=== PATIENT | female | born 1980 | race Hispanic/Latino ===

== ENCOUNTER 2017-07-27 13:34 | Outpatient (CLI) | payer BC ==
--- NOTE | 2017-07-27 15:46 | Mammography Report ---
BILATERAL DIGITAL SCREENING MAMMOGRAM WITH CAD:07/27/17 CLINICAL: Baseline screening.This patient presented with an order for a right axillary ultrasound for something felt by her in the axilla. She has never had a mammogram. FINDINGS: There are bilateral scattered fibroglandular densities.An oval partially circumscribed left focal asymmetry requires additional imaging.No other mass, architectural distortion or suspicious calcifications. The right axilla is negative with a palpable marker high in the axilla. IMPRESSION: Negative right breast. Left asymmetry require additional imaging. BI-RADS CATEGORY: 0--Needs Additional Imaging RECOMMENDATION: Recall for a left breast ultrasound to evaluate a left asymmetry. This ACR BI-RADS MAMMOGRAPHIC CODES: 0 = Needs additional imaging evaluation; 1 = Negative; 2 = Benign; 3 = Probably benign; 4 = Suspicious; 5 = Malignant; 6 = Known biopsy-proven malignancy COMMENT: 1. Dense breast tissue, i.e., adenosis, fibrocystic changes, etc., may obscure an underlying neoplasm. 2. Approximately 10% of cancers are not detected with mammography. 3. A negative mammography report should not delay biopsy if a clinically suspicious mass is present.
--- NOTE | 2017-07-27 15:49 | Ultrasound Report ---
Ultrasound Right Axilla: 07/27/17 13:51:00 CLINICAL: Palpable lumps right axilla. Negative mammogram. FINDINGS: Ultrasound the right axilla demonstrated to oval relatively smooth hypoechoic skin lesions which correlate with the palpable finding. They're located high in the axilla. The larger measures 4 x 4 4 mm and the smaller measures 6 x 2 x 5 mm. IMPRESSION: Subcentimeter benign sebaceous cysts of the right axilla. Recommend clinical followup.
== END 2017-07-27 13:35 | disposition home or self-care (01) ==
LOC: US 13:34
PROVIDERS: ATTEND Family Medicine
DX: Z12.31 Encounter for screening mammogram for malignant neoplasm of breast (principal); L72.3 Sebaceous cyst; R22.31 Localized swelling, mass and lump, right upper limb
CPT/HCPCS: 77067

== ENCOUNTER 2017-08-12 11:16 | Outpatient (CLI) | payer BC ==
--- NOTE | 2017-08-15 13:19 | Ultrasound Report ---
Sonogram left breast: History: Left breast asymmetry. Findings: Addendum a position corresponding to the asymmetry of the left breast there is complex cyst identified measuring 0.6 x 0.8 x 0.5 cm. At the left axilla there is a single lymph node noted measuring 0.5 x 0.7 x 0.7 cm and appears benign. Impression: Complex cyst left breast. Recommend 6 month followup with mammogram and sonogram. BI-RADS CATEGORY: 3 = Probably benign ACR BI-RADS MAMMOGRAPHIC CODES: 0 = Needs additional imaging evaluation; 1 = Negative; 2 = Benign; 3 = Probably benign; 4 = Suspicious; 5 = Malignant; 6 = Known biopsy-proven malignancy COMMENT: 1. Dense breast tissue, i.e., adenosis, fibrocystic changes, etc., may obscure an underlying neoplasm. 2. Approximately 10% of cancers are not detected with mammography. 3. A negative mammography report should not delay biopsy if a clinically suspicious mass is present.
== END 2017-08-12 11:17 | disposition home or self-care (01) ==
LOC: US 11:16
PROVIDERS: ATTEND Family Medicine
DX: N60.02 Solitary cyst of left breast (principal); R92.8 Other abnormal and inconclusive findings on diagnostic imaging of breast

== ENCOUNTER 2018-01-08 06:10 | Inpatient (IN) | payer BC ==
[2018-01-04 11:55] LABS: Basophils % (Auto) 0.7 % (0.0-1.8); Eosinophils # (Auto) 0.8 K/mm3 (0.0-0.4); Eosinophils % (Auto) 12.5 % (0.0-4.3); Hematocrit 40.8 % (30.3-42.9); Hemoglobin 14.1 gm/dl (10.1-14.3); Lymphocytes # (Auto) 1.8 K/mm3 (1.2-5.4); Lymphocytes % (Auto) 26.8 % (13.4-35.0); Mean Corpuscular HGB Conc 35 % (30-34); Mean Corpuscular Hemoglobin 32 pg (28-32); Mean Corpuscular Volume 93 fl (79-97); Monocytes # (Auto) 0.3 K/mm3 (0.0-0.8); Monocytes % (Auto) 5.1 % (0.0-7.3); Platelet Count 289 K/mm3 (140-440); Red Blood Count 4.41 M/mm3 (3.65-5.03); Red Cell Distribution Width 12.8 % (13.2-15.2)
[2018-01-04 12:13] LABS: BUN/Creatinine Ratio 18; Blood Urea Nitrogen 11 mg/dL (7-17); Calcium 8.9 mg/dL (8.4-10.2); Hemolysis Index 10
--- NOTE | 2018-01-04 12:58 | Anesthesia Consultation ---
Anesthesia Consult and Med Hx Date of service: 01/04/18 (For procedure scheduled 01/08/2018) - Airway Anesthetic Teeth Evaluation: Good ROM Head & Neck: Adequate Mental/Hyoid Distance: Adequate Mallampati Class: Class II Intubation Access Assessment: Probably Good - Pulmonary Exam CTA: Yes - Cardiac Exam Cardiac Exam: RRR - Pre-Operative Health Status ASA Pre-Surgery Classification: ASA3 Proposed Anesthetic Plan: General Nerve Block: TAP - Pulmonary Hx Smoking: Yes (4 cigs/day x 5-6 yrs) Hx Asthma: No Hx Respiratory Symptoms: No SOB: No COPD: No Home Oxygen Therapy: No Hx Pneumonia: No - Cardiovascular System Hx Hypertension: No Hx Coronary Artery Disease: No (>4 mets exercise tolerance) Hx Heart Attack/AMI: No Hx Angina: No Hx Percutaneous Transluminal Coronary Angioplasty (PTCA): No Hx Cardia Arrhythmia: No Hx Pacemaker: No Hx Internal Defibrillator: No Hx Valvular Heart Disease: No Hx Heart Murmur: No Hx Peripheral Vascular Disease: Yes (Occasional lower extremity edema) - Central Nervous System Hx Back Pain: Yes (fibromyalgia) Hx Psychiatric Problems: Yes (depression/anxiety) - Gastrointestinal Hx Ulcer: No Hx Gastroesophageal Reflux Disease: No - Endocrine Hx Renal Disease: No Hx Liver Disease: No Hx Insulin Dependent Diabetes: No Hx Non-Insulin Dependent Diabetes: No Hx Thyroid Disease: No - Hematic Hx Anemia: Yes (Resolved) - Other Systems Hx Alcohol Use: Yes (occasional) Hx Substance Use: No Hx Cancer: No Hx Obesity: Yes (BMI 43) - Additional Comments Anesthesia Medical History Comments: PMH fibromyalgia, depression/anxiety, current smoker, hx PONV. Stopped all ASA/NSAIDs 3 days ago. No chronic opiod use. BMP, CBC, bHCG drawn today. T&C ordered DOS.
--- NOTE | 2018-01-07 23:29 | History and Physical Report ---
History of Present Illness Date of examination: 01/04/18 History of present illness: Patient has been reassessed/reevaluated. H&P has been reviewed. No interval changes. She complains of abdominal pain, abdominal pressure, pelvic pain, pelvic pressure and intermenstrual bleeding, but denies menorrhagia. Prior to today's visit the patient has had US of pelvis and CT of pelvis Patient's symptoms when present disrupts her normal daily activities Patient's work up has included evaluation for uterine fibroid embolization Patient was not a candidate for the procedure Patient desires definitive treatment . Vital Signs: Patient Profile: 38 Years Old Female LMP: 01/04/2018 Height: 63 inches (160.02 cm) Weight: 257 pounds (116.82 kg) BMI: 45.52 BSA: 2.15 Menstrual History: LMP (date): 01/04/2018 Current Method of Contraception: Other Past History : 0 Term Births: 0 Premature Births: 0 Living Children: 0 Para: 0 Mult. Births: 0 Prev : 0 Aborta: 0 Elect. Ab: 0 Spont. 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 of genital herpes: no Partner hx. of genital herpes: no Hx of STD: None Current Allergies (reviewed today): No known allergies Past Medical History: depression--wellbutrin 450 qd, lamictal 200 qd, abilify 15 qd borderline hyperlipidemia Past Surgical History: negative Family History Summary: Reviewed history Last on 04/03/2014 and no changes required:01/07/2018 Other family member - Has No Family History of Breast Cancer - Entered On: 2013 Other family member - Has No Family History of Cervical Cancer - Entered On: 04/03/2014 Other family member - Has No Family History of Colon Cancer - Entered On: 2013 Other family member - Has No Family History of Ovarvian Cancer - Entered On: 04/03/2014 Other family member - Has No Family History of DVT/PE on OCP - Entered On: 2013 Social History: Reviewed history from 04/03/2014 and no changes required: Patient is single Risk Factors: Smoked Tobacco Use: Never smoker Smokeless Tobacco Use: Never Passive smoke exposure: no Drug use: no HIV high-risk behavior: no Alcohol use: no Exercise: no Seatbelt use: 100 % Review of Systems General Complains of fatigue. Denies fever, chills, sweats, anorexia, weakness, malaise, weight loss and sleep disorder. Complains of menorrhagia, abnormal vaginal bleeding, pelvic pain and painful periods. Denies vaginal discharge, incontinence, dysuria, hematuria, urinary frequency, amenorrhea, genital sores, decreased libido, painful sex, urinary urgency, hot flashes, vaginal dryness, vaginal itching and vaginal odor. CV Denies chest pains, palpitations, syncope, dyspnea on exertion, orthopnea, PND and peripheral edema. Resp Denies cough, dyspnea at rest, excessive sputum, hemoptysis, wheezing and pleurisy. GI Denies nausea, vomiting, diarrhea, constipation, change in bowel habits, abdominal pain, melena, hematochezia, jaundice, gas/bloating, indigestion/ heartburn, dysphagia and odynophagia. Breast Denies left breast lump, right breast lump, nipple discharge, bloody discharge from nipple, breast pain, abnormal mammogram and breast enlargement. Psych Denies depression, anxiety, irritability and mood swings. Past History Past Medical History: other (See HPI) Past Surgical History: Other (See HPI) Social history: other (See HPI) Family history: other (See HPI) Medications and Allergies Allergies Allergy/AdvReac Type Severity Reaction Status Date / Time No Known Allergies Allergy Unverified 01/01/18 09:39 Home Medications Medication Instructions Recorded Confirmed Last Taken Type ARIPiprazole [Aripiprazole] 2.5 mg PO DAILY 01/01/18 01/08/18 01/08/18 05:30 History Cetirizine HCl [ZyrTEC] 10 mg PO DAILY 01/01/18 01/08/18 01/07/18 22:30 History DULoxetine [Cymbalta] 30 mg PO QDAY 01/01/18 01/08/18 01/07/18 22:30 History Fluticasone [Flonase] 2 spray NS HS 01/01/18 01/08/18 01/06/18 09:00 History Linaclotide [Linzess] 145 mcg PO Q48H 01/01/18 01/08/18 01/05/18 09:00 History Meloxicam 15 mg PO DAILY 01/01/18 01/08/18 01/06/18 09:00 History buPROPion [Wellbutrin] 450 mg PO DAILY 01/01/18 01/08/18 01/08/18 05:30 History lamoTRIgine [LaMICtal] 200 mg PO HS 01/01/18 01/08/18 01/07/18 22:30 History Active Meds: Active Medications Lactated Ringer's (Lactated Ringers) 1,000 mls @ 75 mls/hr IV DIRECT KANDY Review of Systems Constitutional: other (See HPI) Exam - Physical Exam Narrative exam: HEENT: normocephalic, no lesions or deformities Skin no ulcers, xanthomas Chest: respiratory effort normal, clear to auscultation Breasts: no masses or nipple discharge CV: regular, normal S1-S2, no murmur, no rub, no gallop Abdomen: soft, non-tender, no masses, bowel sounds normal Musculoskeletal: grossly normal ROM in joints, no joint tenderness or muscle weakness Neuro: no gross anomalities Extremities: normal alignment, no joint enlargement, crepitus, masses or tenderness; 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 No evidence of cystocele or rectocele. Cervix: normal appearance, no lesions, no discharge Uterus: normal position, midline, mobile Adnexae: no masses or tenderness Rectovaginal: exam defered - Constitutional Vitals: Temp Pulse Resp BP Pulse Ox 99.3 F 80 18 148/80 01/04/18 11:25 01/04/18 11:25 01/04/18 11:25 01/04/18 11:25 Results - Labs CBC & Chem 7: 01/04/18 11:35 01/04/18 11:35 Assessment and Plan - Patient Problems (1) Intramural leiomyoma of uterus Current Visit: No Status: Acute Plan to address problem: Diagnosis explained to patient . Questions answered. Discussed with patient various medical, surgical and radiological therapies common for treatment including myomectomy hysterectomy and uterine artery embolization NOt a candidate for UFE.Patient desires hysterectomy Discussed risks and benefits of laparotomy, laparoscopy, vaginal and robotic assisted approaches for hysterectomies Patient desires robotic assisted total hysterectomy. Patient desires robotic assisted total hysterectomy. Consent reviewed and signed . The risks and alternatives for this surgery were reviewed with the patient. Discuss the risks of the surgery including infection, bleeding possibly heavy enough to require a blood transfusion, possible damage to bowel, bladder or ureter. Patient understand that this surgery with make her sterile.Patient understands if her ovaries are removed she will become menopausal. Also if unable to complete robitcally a laparotomy may be needed Patient advised the small risks of spreading of malignancy if morcellator is used during the surgery patient understands and approve of use if necessary Patient understands and desires to proceed. (2) Menometrorrhagia Current Visit: No Status: Acute Plan to address problem: Probably secondary to # 1 (3) Pelvic pain Current Visit: No Status: Acute Plan to address problem: Probably secondary to # 1 (4) Depression Current Visit: No Status: Chronic Qualifiers: Major depression recurrence: unspecified whether recurrent Active/ Remission status: currently active Psychotic features: without psychotic features (5) BMI 45.0-49.9, adult Current Visit: No Status: Acute
[~2018-01-08 06:10] MED LIST: ANCEF/STERILE WATER 2 GM/20 ML 2 GM/20 ML SYRINGE IV NR; NEURONTIN PO NR; TRANSDERM-SCOP TD NR; VERSED IV NR; ZOFRAN IV NR
[2018-01-08] MEDS ORDERED: MARCAINE-EPI 0.25%-1:200,000 INFILTRATI ONE (06:34)
[2018-01-08] MEDS ORDERED: NEOSPORIN GU IR ONE ×2 (06:34→09:21)
[2018-01-08] MEDS ORDERED: METHYLENE BLUE ONE (06:34)
[2018-01-08] MEDS ORDERED: NACL BACTERIOSTATIC INFILTRATI ONE (06:50)
[2018-01-08] MEDS: LACTATED RINGERS 1,000 ML IV SCH ×2 (07:00→17:00)
[2018-01-08] MEDS ORDERED: XYLOCAINE MPF 2% ONE (07:27)
[2018-01-08] MEDS ORDERED: ZOFRAN ONE (07:27)
[2018-01-08] MEDS ORDERED: ZEMURON IV ONE (07:27)
[2018-01-08] MEDS ORDERED: DECADRON ONE ×4 (07:27→09:13)
[2018-01-08] MEDS ORDERED: DIPRIVAN 10 MG/ML IV ONE (07:27)
[2018-01-08] MEDS ORDERED: DILAUDID ONE (07:28)
[2018-01-08] MEDS ORDERED: VERSED ONE (07:38)
[2018-01-08] MEDS ORDERED: SUBLIMAZE ONE (07:38)
[2018-01-08] MEDS ORDERED: MARCAINE 0.5% 30 ML INFILTRATI ONE (07:39)
[2018-01-08] MEDS ORDERED: PEPCID IV ONE (07:39)
[2018-01-08] MEDS ORDERED: NEURONTIN ONE (07:39)
[2018-01-08] MEDS ORDERED: DEMEROL IV PRN (08:59)
[2018-01-08] MEDS ORDERED: DILAUDID IV PRN (08:59)
[2018-01-08] MEDS ORDERED: ZOFRAN IV PRN ×2 (08:59→13:26)
[2018-01-08] MEDS ORDERED: TORADOL IV PRN (08:59)
--- NOTE | 2018-01-08 09:00 | Anesthesia Day of Surgery ---
Anesthesia Day of Surgery - Day of Surgery Patient Examined: Yes Patient H&P Reviewed: Yes Patient is NPO: Yes
[2018-01-08] MEDS ORDERED: BLOXIVERZ ONE (09:13)
[2018-01-08] MEDS ORDERED: ROBINUL ONE (09:13)
[2018-01-08] MEDS ORDERED: NACL 0.9% IR ONE ×2 (09:20→09:21)
[2018-01-08] MEDS ORDERED: ePHEDrine SULFATE ONE (09:26)
[2018-01-08] MEDS ORDERED: METHYLENE BLUE IV ONE (10:15)
--- NOTE | 2018-01-08 12:24 | Operative Report ---
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 2 pedunculated fibroids measuring 8-10 cm in diameter multiple intramural fibroids approximately from 1-6 cm in diameter adhesions between uterus and fibroids. Normal. Ovaries and fallopian tubes bilaterally Specimen(s): Uterus with cervix and multiple myomas also bilateral fallopian tubes Procedure: Patient was brought to the operating room where general anesthesia was induced without difficulty. Patient was placed in the dorsal lithotomy position. Prepped and draped in the usual sterile manner for robotic procedure. Bledsoe catheter was placed without difficulty. Speculum was placed in the vagina. A large V-Care Uterine manipulator was placed without difficulty. Attention was now switched to the patient's abdomen. A vertical supra-umbilicus incision was made with a scalpel. A 10-12 trocar was placed in this incision under direct visualization. Intra-abdominal placement was verified with no evidence of internal organ damage. The patient pelvic findings were noted as above. It was determined that the patient was a candidate for robotic procedure. On both sides the umbilical incision at about 8 cm, incisions were made for robotic trocar. Each robotic trocar was placed under direct visualization with no evidence of internal organ damage. Two staff assistant ports were then placed. One 5 mm trocar was placed 2 fingerbreadths above the right iliac crest. The second [address] between the camera port and the right robotic arms port. At this time the patient was placed in extreme Trendelenburg. The da Julia robot was then docked on the patient's left side. The trocars connected to the robot appropriately. At this time I took my place under the robotic operating benitez. Starting on the patient's right side the mesosalpinx of the tube were cauterized for mild distal to proximal tube. Bipolar cautery was placed across the proximal portion of the fallopian tube. This area was cauterized and cut the fallopian tube was then removed from the large campaign assistant port. Utero- ovarian complex was cauterized and cut. This was followed by cauterizing and cutting the right fallopian tube and right round ligament. The broad ligament was then opened. The bladder flap was formed anteriorly. The posterior broad ligament was then excised. The uterine vessels were skeletonized. The ureter was not clearly seen due to the patient's large myomas. Patient was given methylene blue IV. The bladder was pushed away from the anterior uterus. Attention was then switched to the patient's left side. The same procedure was repeated on the left side with perform the salpingectomy followed by isolating the uterine vessels cauterized and cutting and completing the bladder flap from the left side. In order to clearly see the uterine vessels on the left the pedunculated fibroid that side was then removed by cauterizing the stalk followed by lysis of adhesions. Also in order to see the posterior cul-de -sac clear posterior fundal myoma was then removed in the same manner. One of the removed fibroid from [place] and posterior cul-de-sac the other in the right ovarian fossa. After inspecting the bladder flap insured no evidence of bladder injury, the colpotomy was then started posterior uterus.. Incision started at 6 :00 until the V-Care could be seen. This incision was extended from 6:00 to 9: 00. Then from 6:00 to 3:00. Then from 9:00 to 12:00. This incision was extended from 3:00 to 12:00. At this time colpotomy was complete with no evidence of adjacent organ damage. The staff assistant remove the uterus from through the colpotomy site. The vaginal cuff was irrigated and cauterized and found to be hemostatic. The cuff was closed with roboticly using 0 V- Lock suture. This closure was hemostatic after irrigation and Bovie. All pedicles were inspected and found to be hemostatic. There were no intracavitary spillage of dye seen The ureters were identified bilaterally and found to be functioning normal. The patient had clear urine in the Bledsoe catheter with no evidence of mixture with blood. Demetrice was placed on the cuff and pedicles for postoperative hemostasis . All instruments were then removed. The large trocar sites were closed in layers and 4-0 Vicryl. The smaller incisions were closed subcuticularly with 4-0 Vicryl. The patient tolerated procedure well. She was awakened in the operating room and accompanied to the recovery room in good condition.
[2018-01-08] MEDS ORDERED: MILK OF MAGNESIA PO PRN (13:26)
[2018-01-08] MEDS ORDERED: NORCO 5/325 ONE (13:32)
[2018-01-08] MEDS: NORCO 5/325 PO PRN (13:35)
--- NOTE | 2018-01-08 14:24 | Post Anesthesia Evaluation ---
- Post Anesthesia Evaluation Patient Participated: Yes Airway Patent: Yes Stable Respiratory Function: Yes Nausea/Vomiting: No Temp > 96.8F: Yes Pain Manageable: Yes Adequeate Hydration: Yes Anesthesia Complications: Yes
--- NOTE | 2018-01-08 15:47 | Event Note ---
Date: 01/08/18 Day of surgery. Discuss operative findings with patient and questions answered. Patient without fever. Will ambulate in halls this evening. Good urine output. We will continue routine postoperative care.
[2018-01-08] MEDS: TORADOL IV SCH ×2 (16:42→22:37)
[2018-01-08] MEDS: ANCEF/NS 1 GM/50 ML 1 GM/50 ML BAG IV SCH (16:54)
[2018-01-08] MEDS ORDERED: LACTATED RINGERS 1,000 ML ONE (16:56)
[2018-01-08] MEDS ORDERED: NON-FORMULARY (Lamotrigine [Lamictal] 200 MG) PO SCH (22:00)
[2018-01-08] MEDS ORDERED: LaMICtal PO SCH (22:00)
[2018-01-08] MEDS ORDERED: FLONASE NS SCH (22:00)
[2018-01-08] MEDS: COLACE PO SCH (22:37)
[2018-01-09] MEDS: ANCEF/NS 1 GM/50 ML 1 GM/50 ML BAG IV SCH (01:21)
[2018-01-09] MEDS: NORCO 5/325 PO PRN ×2 (01:23→11:30)
[2018-01-09 05:06] LABS: Hematocrit 38.5 % (30.3-42.9); Hemoglobin 12.9 gm/dl (10.1-14.3)
[2018-01-09] MEDS: TORADOL IV SCH (05:34)
[2018-01-09] MEDS ORDERED: WELLBUTRIN PO SCH (10:00)
[2018-01-09] MEDS ORDERED: CYMBALTA PO SCH (10:00)
[2018-01-09] MEDS: COLACE PO SCH (10:35)
[2018-01-09 13:30] VITALS: BP 114/64
--- NOTE | 2018-01-09 14:10 | Progress Note ---
Assessment and Plan - Patient Problems (1) S/P robot-assisted surgical procedure Current Visit: Yes Status: Acute Plan to address problem: -routine post op care -d/c home today (2) History of robot-assisted laparoscopic hysterectomy Current Visit: Yes Status: Acute Subjective - Subjective Date of service: 01/09/18 Principal diagnosis: POD #1 s/p RATH with BS Interval history: Pt doing well. +spontaneous void w/o difficulty or pain. +ambulation. + toleration of a regular diet. Pt desires d/c home today. Patient reports: appetite normal, voiding normally, pain well controlled, flatus , ambulating normally, no nauseated Objective - Vital Signs Latest vital signs: Vital Signs Temp Pulse Resp BP Pulse Ox 01/09/18 13:29 97.6 F 73 18 114/64 100 01/09/18 08:00 97.7 F 67 16 107/61 01/09/18 04:45 98.4 F 88 18 98/56 01/09/18 00:00 98.2 F 74 20 103/59 01/08/18 20:00 98.2 F 79 20 101/56 01/08/18 16:42 20 Intake and Output 01/08/18 01/09/18 01/09/18 22:59 06:59 14:59 Intake Total 1040 240 240 Output Total 2300 600 Balance -1260 -360 240 Intake: IV 800 ANCEF/NS 1 GM/50 ML 1 gm 50 In 50 ml @ 100 mls/hr IV Q8H [facility] Rx#:[id number] Lactated Ringers 1,000 ml 750 @ 75 mls/hr IV DIRECT [facility] Rx#:[id number] Oral 240 240 240 Output: Urine 2300 600 Indwelling Catheter 2300 600 Other: Total, Intake Amount 240 240 240 Total, Output Amount 400 600 Voiding Method Indwelling Catheter - Exam Cardiovascular: Present: Normal S1, Normal S2 Lungs: Present: Clear to auscultation, Normal air movement Abdomen: Present: normal appearance, soft, normal bowel sounds. Absent: distention, tenderness, guarding Extremities: Present: normal. Absent: tenderness, edema Incision: Present: normal, dry, intact, other (open to air with surgical glue in place). Absent: erythematous, suppurative
--- NOTE | 2018-01-09 14:11 | Discharge Summary ---
Providers - Providers Date of Admission: 01/08/18 13:26 Date of discharge: 01/09/18 Attending physician: SATISH WHITMORE Primary care physician: ORAL OLIVIER MD Hospitalization Reason for admission: other (fibroid uterus. abnormal bleeding) Procedure: other (RATH with BS) Procedure details: see op note Incision: normal, dry, intact Discharge diagnosis: other (s/p RATH with BS) Hospital course: pt admtted for above stated procedure. Hospital course was not complicated. Pt will be d/c home toay with f/u with Dr. Whitmore in one week. Condition at discharge: Good Disposition: DC-01 TO HOME OR SELFCARE - Discharge Diagnoses (1) History of robot-assisted laparoscopic hysterectomy Status: Acute (2) S/P robot-assisted surgical procedure Status: Acute (3) BMI 45.0-49.9, adult Status: Acute (4) Intramural leiomyoma of uterus Status: Resolved (5) Menometrorrhagia Status: Resolved (6) Pelvic pain Status: Resolved (7) Depression Status: Chronic Qualifiers: Major depression recurrence: unspecified whether recurrent Active/ Remission status: currently active Psychotic features: without psychotic features Plan - Discharge Medications Prescriptions: Ferrous Sulfate [Feosol 325 MG tab] 325 mg PO BID #60 tablet Ibuprofen [Motrin 800 MG tab] 800 mg PO Q6H PRN #30 tablet PRN Reason: Pain oxyCODONE /ACETAMINOPHEN [Percocet 5/325 mg] 1 - 2 tab PO Q4H PRN #30 tablet PRN Reason: Pain, Moderate - Provider Discharge Summary Activity: no sex for 6 weeks, no heavy lifting 4 weeks, no strenuous exercise Diet: routine Instructions: routine Additional instructions: [] Smoking cessation referral if applicable(refer to patient education folder for contact #) [] Refer to [facility] Booklet Call your doctor immediately for: * Fever > 100.5 * Heavy vaginal bleeding ( >1 pad per hour) * Severe persistent headache * Shortness of breath * Reddened, hot, painful area to leg or breast * Drainage or odor from incision. * Keep incision clean and dry at all times and follow doctor's instructions regarding bathing/showering - Follow up plan Follow up: ORAL OLIVIER MD [Primary Care Provider] - 7 Days SATISH WHITMORE MD [Staff Physician] - 7 Days
== END 2018-01-09 16:18 | disposition home or self-care (01) | DRG 742 ==
LOC: OR 06:10 → OB 13:26
PROVIDERS: ADMIT Obstetrics & Gynecology; ATTEND Obstetrics & Gynecology
PROC: 0UT94ZZ Resection of Uterus, Percutaneous Endoscopic Approach (ICD-10-PCS; principal; 2018-01-08)
PROC: 0UT74ZZ Resection of Bilateral Fallopian Tubes, Percutaneous Endoscopic Approach (ICD-10-PCS; 2018-01-08)
PROC: 8E0W4CZ Robotic Assisted Procedure of Trunk Region, Percutaneous Endoscopic Approach (ICD-10-PCS; 2018-01-08)
DX: D25.1 Intramural leiomyoma of uterus (principal); Z68.41 Body mass index [BMI] 40.0-44.9, adult; N92.1 Excessive and frequent menstruation with irregular cycle; F32.9 Major depressive disorder, single episode, unspecified; F17.210 Nicotine dependence, cigarettes, uncomplicated; I73.9 Peripheral vascular disease, unspecified; M79.7 Fibromyalgia; F41.9 Anxiety disorder, unspecified; E66.9 Obesity, unspecified; Z72.89 Other problems related to lifestyle; Z79.899 Other long term (current) drug therapy
CPT/HCPCS: 36415; 64450; 80048; 84703; 85014; 85018; 85025; 86850; 86900; 86901; 88302; 88307; A4217; J0690; J1100; J1170; J1885; J2250; J2405; J2704; J2710; J3010; J7120; Q9968

== ENCOUNTER 2018-02-18 10:31 | Outpatient (CLI) | payer BC ==
--- NOTE | 2018-02-18 13:51 | Magnetic Resonance Report ---
MR LOWER EXTREMITY JOINT LEFT WITHOUT CONTRAST HISTORY: Pain. TECHNIQUE: Multisequence, multiplanar MRI was performed through the left knee. FINDINGS: No comparison. Trace joint effusion is identified. No popliteal cyst. There is normal bone marrow signal throughout the visualized left knee. No evidence for fracture, osteochondral defect or bone lesion. The ACL, PCL, MCL, LCL complex and extensor complex are intact. The medial and lateral menisci are intact. No degeneration or tear. Intra-articular cartilage appears intact. Para-articular soft tissues are unremarkable. IMPRESSION: Trace joint effusion, otherwise, unremarkable MRI of the left knee. No internal derangement is detected.
== END 2018-02-18 10:32 | disposition home or self-care (01) ==
LOC: MRI 10:31
PROVIDERS: ATTEND Family Medicine
DX: M25.562 Pain in left knee (principal); I73.9 Peripheral vascular disease, unspecified; E66.9 Obesity, unspecified; M17.0 Bilateral primary osteoarthritis of knee; M19.039 Primary osteoarthritis, unspecified wrist; Z87.891 Personal history of nicotine dependence
CPT/HCPCS: 73721

== ENCOUNTER 2019-01-25 11:30 | Outpatient (CLI) | payer BC ==
--- NOTE | 2019-01-25 15:56 | Mammography Report ---
BILATERAL DIGITAL SCREENING MAMMOGRAM WITH CAD INDICATION: Routine screening mammography. TECHNIQUE: Digital bilateral 2D mammography was obtained in the craniocaudal and mediolateral obliq ue projections. This examination was interpreted with the benefit of Computer-Aided Detection analysi s. COMPARISON: 07/27/2017 FINDINGS: Breast Density: The breasts are heterogeneously dense, which may obscure small masses. No mass, architectural distortion or suspicious calcifications. An oval 9 mm confirmed cyst of the le ft breast at 10:00 is unchanged compared to the previous exam. IMPRESSION:No mammographic evidence of malignancy. BI-RADS Category 2: Benign. No mammographic evidence of malignancy. Recommend routine screening ma mmography in one year. A "normal" or negative report should not discourage follow up or biopsy of a clinically significant f inding. A written summary of these findings will be mailed to the patient. The patient will be entered into a mammography reporting system which will generate a reminder letter for the patient's next appointmen t at the appropriate interval. The [employer] recommends yearly mammograms starting at age 40 and continuing as l luther as a woman is in good health. Breast MRI is recommended for women with an approximate 20-25% or greater lifetime risk of breast cancer, including women with a strong family history of breast or ova pema cancer or who have been treated for Hodgkin's disease. Signer Name: Vitaly Villa MD Signed: 01/25/2019 3:52 PM Workstation Name: [id number]
== END 2019-01-25 11:31 | disposition home or self-care (01) ==
LOC: MAMMO 11:30
PROVIDERS: ATTEND Family Medicine
DX: Z12.31 Encounter for screening mammogram for malignant neoplasm of breast (principal); E66.9 Obesity, unspecified
CPT/HCPCS: 77067

== ENCOUNTER 2021-02-26 10:44 | Outpatient (CLI) | payer BC ==
--- NOTE | 2021-02-26 12:29 | Mammography Report ---
BILATERAL DIGITAL SCREENING MAMMOGRAM WITH CAD HISTORY: Screening mammogram. TECHNIQUE: Routine digital mammographic imaging performed. This examination was interpreted with alanis jansen benefit of Computer-aided Detection analysis. COMPARISON: 02/23/2020, 01/25/2019, 07/27/2017. FINDINGS: Breast Density: scattered fibroglandular appearance of the breast tissue. Digital CC and MLO views demonstrate no mammographic evidence of malignancy. Previously noted left u pper inner circumscribed oval mass is no longer identified. IMPRESSION: No mammographic evidence of malignancy. If the clinical examination remains stable, recommend bilate ral mammogram in approximately one year. BIRADS 1: Negative. FURTHER INFORMATION: According to the [employer], yearly mammograms are recommend ed starting at age 40 and continuing as long as a woman is in good health. Clinical Breast Exams shou ld be part of a periodic health exam-about every 3 years for women in their 20s and 30s and every yea r for women 40 and over. Breast self exam is an option for women starting in their 20s. Any breast ch brennen noted on a breast self exam should be reported promptly to the patient's healthcare provider. Br east MRI is recommended for women with an approximately 20-25% or greater lifetime risk of breast can cer, including women with a strong family history of breast or ovarian cancer and women who have been treated for Hodgkin's disease. A negative Mammography report should not discourage follow up or biopsy of a clinically significant f inding and/or abnormality. Dense breast tissue may obscure small neoplasms. The patient will be entered into a reminder system with a target due date for the next screening mamm ogram. Signer Name: Torey Lujan MD Signed: 02/26/2021 12:25 PM Workstation Name: [id number]
== END 2021-02-26 10:45 | disposition home or self-care (01) ==
LOC: MAMMO 10:44
PROVIDERS: ATTEND Family Medicine
DX: Z12.31 Encounter for screening mammogram for malignant neoplasm of breast (principal)
CPT/HCPCS: 77067

== ENCOUNTER 2021-09-25 10:56 | Outpatient (CLI) | payer BC ==
--- NOTE | 2021-09-25 15:27 | Ultrasound Report ---
ULTRASOUND THYROID INDICATION / CLINICAL INFORMATION: E04.9 ENLARGED THYROID. COMPARISON: None available. FINDINGS: RIGHT LOBE: Size (cm) = 6.2 x 2.3 x 1.6 cm. LEFT LOBE: Size (cm) = 6.4 x 2.8 x 2.6 cm. ISTHMUS: Thickness (cm) = 0.8 cm. APPEARANCE: Normal. SMALL NODULES < 1 cm: Subcentimeter benign spongiform nodule within the left lower thyroid lobe measu ring 8 mm. NODULES >= 1 cm or SUSPICIOUS FEATURES (up to 4): - NODULE # 1 - Location: Right Upper - Maximum Size (cm): 1.2 cm - Significant Change (>= 20% in 2 dim. & inc. >= 2mm): No prior study - Composition: Mixed cystic & solid = 1 point - Echogenicity: Hyperechoic or Isoechoic = 1 point - Shape: [id number] = 0 points - Margin: Smooth = 0 points - Echogenic Foci: None = 0 points - Additional Echogenic Foci: None = 0 points - Additional Findings: None. - ACR TI-RADS Score / Category = 2 points / TI-RADS 2 - NODULE # 2 - Location: Isthmus - Maximum Size (cm): 1.7 cm - Significant Change (>= 20% in 2 dim. & inc. >= 2mm): No prior study - Composition: Solid = 2 points - Echogenicity: Hypoechoic = 2 points - Shape: [id number] = 0 points - Margin: Lobulated or Irregular = 2 points - Echogenic Foci: None = 0 points - Additional Echogenic Foci: None = 0 points - Additional Findings: None. - ACR TI-RADS Score / Category = 6 points / TI-RADS 4 - NODULE # 3 - Location: Left mid - Maximum Size (cm): 3.3 cm - Significant Change (>= 20% in 2 dim. & inc. >= 2mm): No prior study - Composition: Mostly Solid = 2 points - Echogenicity: Hyperechoic or Isoechoic = 1 point - Shape: Lerwy-exql-bidi = 0 points - Margin: Smooth = 0 points - Echogenic Foci: Large comet-tail artifacts = 0 points - Additional Echogenic Foci: None = 0 points - Additional Findings: None. - ACR TI-RADS Score / Category = 3 points / TI-RADS 3 - No additional suspicious thyroid nodules. LYMPH NODES: No abnormal lymph nodes. PARATHYROID GLANDS: No abnormal parathyroid glands. ADDITIONAL FINDINGS: None. IMPRESSION: 1. Right upper thyroid nodule measures 1.2 cm and is TI RADS category 2. No follow-up or biopsy requi red. 2. Isthmus nodule measures 1.7 cm and is TI RADS category 4. Recommend FNA. 3. Left mid thyroid nodule measures 3.3 cm and is TI RADS category 3. Recommend FNA. ACR TI-RADS Thyroid Nodule Recommendations TI-RADS 1 (0 pts) -- BENIGN. - No Fine Needle Aspirate biopsy (FNA) or follow-up. TI-RADS 2 (1-2 pts) -- NOT SUSPICIOUS. - No FNA or follow-up. TI-RADS 3 (3 pts) -- MILDLY SUSPICIOUS. - >= 2.5 cm: FNA. - 1.5-2.4 cm: Follow up at 1, 3, 5 years. - < 1.5 cm: No follow up. TI-RADS 4 (4-6 pts) -- MODERATELY SUSPICIOUS. - >= 1.5 cm: FNA. - 1.0-1.4 cm: Follow up at 1, 2, 3, 5 years. - < 1.0 cm: No follow up. TI-RADS 5 (7+ pts) -- HIGHLY SUSPICIOUS. - >= 1.0 cm: FNA. - 0.5-0.9 cm: Follow annually for 5 years. - 0.5 cm: No follow up. REFERENCE: ACR Thyroid Imaging, Reporting and Data System (TI-RADS): White Paper of the ACR TI-RADS C ommittee. J AM Stan Radiol 2017;14:587-595. NOTE: Nodules < 1 cm do not typically require follow-up or FNA unless there are suspicious features. NOTE: Nodule size maximum dimension determines whether a given lesion should be biopsied or followed. NOTE: If multiple nodules meet criteria for FNA, only the two (2) most suspicious nodules should be b iopsied. In addition, FNA of any suspicious cervical nodes should be biopsied. NOTE: Predominantly Cystic nodules and Spongiform nodules, composed predominantly (>50%) of small cys tic spaces, are considered benign (TI-RADS 1) regardless of other criteria. Scribed by: Quin Pendleton RDMS, RAEGAN, NICOLE Scribed: 09/25/2021 12:33 PM I have reviewed the images, agree with this report, and edited this report as needed. Signer Name: James Torres MD Signed: 09/25/2021 3:23 PM Workstation Name: [id number]
== END 2021-09-25 10:57 | disposition home or self-care (01) ==
LOC: US 10:56
PROVIDERS: ATTEND Physician Assistant
DX: E04.2 Nontoxic multinodular goiter (principal)
CPT/HCPCS: 76536